=== PATIENT | female | born 1990 | race Two or more races ===

== ENCOUNTER 2016-06-02 00:13 | Emergency (ER) | payer OTHER ==
[~2016-06-02] VITALS: Ht 170.2 cm; Wt 71.2 kg
[2016-06-02 00:32] VITALS: BP 129/77
[2016-06-02] MEDS ORDERED: VENTOLIN HFA18 GM INH (00:50)
[2016-06-02] MEDS ORDERED: Albuterol ud Inhalation HHN ONE (01:00)
--- NOTE | 2016-06-02 02:02 | Emergency Room Report ---
History of Present Illness General Chief Complaint: Dyspnea/Respdistress Source: Patient Present Illness HPI 25 YO F with recent episodes of audible wheezing, chest tightness, SOB. Non- smoker, no self or fam history of asthma, COPD. Episodes occurred after running. Lives with brothers who smoke. Had episode earlier today outside at baseball game, got scared because symptoms didnt improve, came to ED. Denies recent fever/chills, cough. Allergies: Uncoded Allergies: SEASONAL (Allergy, Unknown, 06/02/16) Patient History Past Medical History: none Past Surgical History: none Pertinent Family History: none Social History: Denies: alcohol use, drug use, smoking Last Menstrual Period: 05/22/16 Now: No Immunizations: UTD Reviewed Nursing Documentation: PMH: Agreed, PSxH: Agreed Nursing Documentation-PMH Past Medical History: No Stated History Review of Systems All Other Systems: negative except mentioned in HPI Physical Exam Vital Signs Date Time Temp Pulse Resp B/P Pulse Ox O2 Delivery O2 Flow Rate FiO2 06/02/16 00:19 97.9 79 19 129/77 98 Room Air Sp02 EP Interpretation: reviewed, normal General Appearance: normal inspection, well appearing, no apparent distress, alert, GCS 15, non-toxic Head: normocephalic, atraumatic Eyes: bilateral eye EOMI, bilateral eye PERRL ENT: normal ENT inspection, hearing grossly normal, normal voice Neck: normal inspection, full range of motion, supple, no bony tend Respiratory: normal inspection, chest non-tender, lungs clear, normal breath sounds, no rhonchi, no respiratory distress, no retraction, no accessory muscle use, no wheezing Cardiovascular #1: regular rate, rhythm, no edema Gastrointestinal: normal inspection, normal bowel sounds, non tender, soft, no guarding, no hernia Genitourinary: no CVA tenderness Musculoskeletal: normal inspection, back normal, normal range of motion, Kerline' s Sign negative Neurologic: normal inspection, alert, oriented x3, responsive, demurrage agent III-XII nml as tested, motor strength/tone normal, speech normal Psychiatric: normal inspection, judgement/insight normal, mood/affect normal Skin: normal inspection, normal color, no rash Medical Decision Making Diagnostic Impression: Primary Impression: Exercise induced bronchospasm ER Course 25YOF with possible exercise induced bronchospasm, also related to second-hand smoke VSS. Afebrile. Lungs CTAB. No wheezing Improved with 1 albuterol in the ED Rx albuterol ,advised to use before running Advised to ask brothers to STOP smoking inside Advised PMD followup for Pulm referral for PFTs Last Vital Signs Date Time Temp Pulse Resp B/P Pulse Ox O2 Delivery O2 Flow Rate FiO2 06/02/16 01:05 97.9 88 20 129/77 100 Room Air Status: unchanged Disposition: HOME, SELF-CARE Condition: Improved Scripts Albuterol Sulfate (VENTOLIN HFA) 18 Gm Hfa.aer.ad 1 PUFF INH EVERY 6 HOURS for wheezing, chest tightness, #18 GM 0 Refills Prov: SHADIA RUVALCABA M.D. 06/02/16 Referrals: NOT CHOSEN IPA/MD,REFERRING (PCP) Patient Instructions: Bronchospasm, Adult, [id number] Additional Instructions: - use albuterol pump BEFORE you run/exercise and after as needed for wheezing, chest tightness - if your symptoms are not relieved with the albuterol, return here or nearest ER - Try to avoid second-hand smoke - Follow up with your doctor or digital photographer for asthma testing SHADIA RUVALCABA M.D. Jun 02, 2016 02:02
== END 2016-06-02 01:08 | disposition home or self-care (01) ==
LOC: EMR 00:45
DX: J45.990 Exercise induced bronchospasm (principal)
CPT/HCPCS: 94640; 94664; 99283

== ENCOUNTER 2016-07-28 20:36 | Emergency (ER) | payer OTHER ==
[~2016-07-28] VITALS: Ht 170.2 cm; Wt 68.0 kg
[~2016-07-28 20:36] MED LIST: VENTOLIN HFA18 GM INH
[2016-07-28 20:45] VITALS: BP 136/96
--- NOTE | 2016-07-28 20:50 | Emergency Room Report ---
History of Present Illness General Chief Complaint: Asthma Source: Patient Present Illness HPI She uses pump before working out. Sore throat started Tuesday. The past day the asthma has been more severe. No fever, productive cough, NVD, dysuria. Fairly significant attack - about same as last month without URI sy. prior to Tuesday. Denies chest pain. No fevers. Last month she had wheezing without sore throat. Patient was told in the past she has exercised induced asthma. LNMP = end of last month. No rashes. 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[employer], lives with parents Last Menstrual Period: 07/18/16 Now: No : 1 Para: 1 Reviewed Nursing Documentation: PMH: Agreed, PSxH: Agreed Nursing Documentation-PMH Hx Asthma: Yes Review of Systems All Other Systems: negative except mentioned in HPI Physical Exam Vital Signs Date Time Temp Pulse Resp B/P Pulse Ox O2 Delivery O2 Flow Rate FiO2 07/28/16 20:39 98.4 82 20 136/96 94 Room Air Sp02 EP Interpretation: reviewed, abnormal - low General Appearance: well appearing, no apparent distress, GCS 15 Head: normocephalic Eyes: bilateral eye PERRL, bilateral eye normal inspection ENT: moist mucus membranes Neck: supple Respiratory: wheezing, expiration Cardiovascular #1: regular rate, rhythm Cardiovascular #2: 2+ radial (R) Gastrointestinal: normal inspection, normal bowel sounds, non tender, no mass, non-distended Musculoskeletal: back normal, gait/station normal, normal range of motion Neurologic: alert, oriented x3, grossly normal Psychiatric: mood/affect normal Skin: normal inspection, warm/dry Medical Decision Making Diagnostic Impression: Primary Impression: Asthma Qualified Codes: J45.31 - Mild persistent asthma with (acute) exacerbation ER Course Patient presents with exacerbation of asthma. Differential includes bronchitis , viral syndrome, allergic-induced asthma amongst others. She is afebrile at this time in no distress although there is historian extremities on the left- hand side. Consideration for x-rays and lab work undertaken if not improved. Patient much better after tx. Exercised and only minimal wheezes with forced exhalation. Discussed need for further eval and also need for parents not to smoke around her. Patient stable for outpatient observation and treatment. Last Vital Signs Date Time Temp Pulse Resp B/P Pulse Ox O2 Delivery O2 Flow Rate FiO2 07/28/16 21:47 98.4 94 16 136/96 100 Room Air Status: improved Disposition: HOME, SELF-CARE Condition: Improved Scripts Albuterol Sulfate* (ALBUTEROL SULFATE MDI*) 8.5 Gm Hfa.aer.ad 2 PUFF INH Q6H, #1 EA 1 Refill Prov: Sonny Fermin M.D. 07/28/16 Sonny Fermin M.D. Jul 28, 2016 20:50
[2016-07-28] MEDS ORDERED: Ipratropium 0.02% Inh Soln 2.5ml UD HHN ONE (21:00)
[2016-07-28] MEDS ORDERED: Albuterol ud Inhalation HHN ONE (21:00)
[2016-07-28 21:37] VITALS: BP 124/84
[2016-07-28] MEDS ORDERED: ALBUTEROL SULF8.5 GM INH (21:39)
[2016-07-28 21:47] VITALS: BP 136/96
== END 2016-07-28 21:47 | disposition home or self-care (01) ==
LOC: EMR 21:20
DX: J45.901 Unspecified asthma with (acute) exacerbation (principal)
CPT/HCPCS: 94640; 99283; J8540

== ENCOUNTER 2017-07-12 20:20 | Emergency (ER) | payer OTHER ==
[~2017-07-12] VITALS: Ht 170.2 cm; Wt 72.6 kg
[~2017-07-12 20:20] MED LIST changes: +ALBUTEROL SULF8.5 GM INH
[2017-07-12 20:30] VITALS: BP 128/87
[2017-07-12] MEDS ORDERED: Albuterol ud Inhalation HHN ONE (20:45)
[2017-07-12] MEDS ORDERED: Ipratropium 0.02% Inh Soln 2.5ml UD HHN ONE (20:45)
[2017-07-12] MEDS ORDERED: PREDNISONE20 MG ORAL (21:09)
[2017-07-12] MEDS ORDERED: ALBUTEROL SULF8.5 GM INH (21:09)
--- NOTE | 2017-07-12 21:09 | Emergency Room Report ---
History of Present Illness General Chief Complaint: Dyspnea/Respdistress Source: Patient, Family Member Present Illness HPI Is a 26-year-old female with history of asthma. She presents with chief complaint of shortness of breath and wheezing. They are renovating their house removing the carpet. There was a lot of dust. She had acute onset of shortness of breath and wheezing. She took her inhaler. Because it wasn't resolving David quickly, she came to the hospital. She felt better now. No fever chills but no nausea no vomiting. Denies any other complaint. Allergies: Uncoded Allergies: SEASONAL (Allergy, Unknown, 06/02/16) Patient History Past Medical History: see triage record, old chart reviewed, asthma Past Surgical History: none Pertinent Family History: none Social History: Denies: smoking Last Menstrual Period: now Now: No Immunizations: other Reviewed Nursing Documentation: PMH: Agreed; PSxH: Agreed Nursing Documentation-PMH Hx Asthma: Yes Review of Systems Eye: Denies: eye pain, blurred vision ENT: Denies: ear pain, nose congestion, throat swelling Respiratory: Reports: cough, shortness of breath, wheezing Cardiovascular: Denies: chest pain, palpitations Gastrointestinal: Denies: abdominal pain, diarrhea, nausea, vomiting Musculoskeletal: Denies: back pain, joint pain Skin: Denies: rash Neurological: Denies: headache, numbness Endocrine: Denies: increased thirst, increased urine Hematologic/Lymphatic: Denies: easy bruising All Other Systems: negative except mentioned in HPI Physical Exam Vital Signs Date Time Temp Pulse Resp B/P (MAP) Pulse Ox O2 Delivery O2 Flow Rate FiO2 07/12/17 20:23 98.3 102 18 159/93 96 Room Air 98.2 vitals with high blood pressure. Repeat blood pressure normal Sp02 EP Interpretation: reviewed, normal General Appearance: well appearing, no apparent distress, alert Head: normocephalic, atraumatic Eyes: bilateral eye PERRL, bilateral eye EOMI ENT: hearing grossly normal, normal pharynx Neck: full range of motion, supple, no meningismus Respiratory: chest non-tender, lungs clear, normal breath sounds Cardiovascular #1: regular rate, rhythm, no murmur Gastrointestinal: normal bowel sounds, non tender, no mass, no organomegaly, no bruit, non-distended Musculoskeletal: back normal, gait/station normal, normal range of motion Psychiatric: mood/affect normal Skin: warm/dry Medical Decision Making Diagnostic Impression: Primary Impression: Asthma with exacerbation Qualified Codes: J45.901 - Unspecified asthma with (acute) exacerbation ER Course Patient presents with dyspnea most likely has a bronchospasm from inhalant and dust. Better now. No evidence of ACS, PE, dissection to name a few. No pneumonia. We'll discharge home. Chest X-Ray Diagnostic Results Chest X-Ray Diagnostic Results : Chest X-Ray Ordered: Yes # of Views/Limited/Complete: 1 View EP Interpretation: Yes Interpretation: no consolidation, no effusion, no pneumothorax, no acute cardiopulmonary disease Impression: No acute disease Electronically Signed by: Iván Sorensen MD Last Vital Signs Date Time Temp Pulse Resp B/P (MAP) Pulse Ox O2 Delivery O2 Flow Rate FiO2 07/12/17 20:30 98.1 18 128/87 100 Room Air 98.1 07/12/17 20:30 77 Status: improved Disposition: HOME, SELF-CARE Condition: Stable Scripts Prednisone* (PREDNISONE*) 20 Mg Tablet 40 MG ORAL DAILY, #8 TAB Prov: IVÁN SORENSEN M.D. 07/12/17 Albuterol Sulfate* (ALBUTEROL SULFATE MDI*) 8.5 Gm Hfa.aer.ad 2 PUFF INH Q4H PRN for cough/wheezing, #1 EA 0 Refills Prov: IVÁN SORENSEN M.D. 07/12/17 Additional Instructions: Follow-up your doctor in 7 days as needed. Return if symptom worsen. IVÁN SORENSEN M.D. July 12, 2017 21:09
[2017-07-12 21:17] VITALS: BP 132/72
[2017-07-12 21:18] VITALS: BP 132/72
--- NOTE | 2017-07-13 11:30 | Diagnostic Imaging Report ---
Indication: Dyspnea Comparison: None A single view chest radiograph was obtained. Findings: Cardiomediastinal appearance is within normal limits for age. Pulmonary vascularity is appropriate. The diaphragmatic contour is smooth and costophrenic angles are sharp. No pleural effusions are identified. The bones are unremarkable. Impression: No acute findings
== END 2017-07-12 21:26 | disposition home or self-care (01) ==
LOC: EMR 21:26
DX: J45.901 Unspecified asthma with (acute) exacerbation (principal)
CPT/HCPCS: 71045; 99284; J7512